=== PATIENT | male | born 1990 | race Caucasian/White ===

== ENCOUNTER 2023-10-17 04:56 | Emergency (ER) | payer SELFPAY ==
[2023-10-17] MEDS ORDERED: Naproxen 500 MG TAB ONE (05:24)
[2023-10-17] MEDS ORDERED: Carbamide Peroxide 6.5% Otic Drops 15 ml Bottle ONE (05:25)
[2023-10-17] MEDS ORDERED: Tetracaine 0.5% PF 4 ML BOT ONE (05:28)
[2023-10-17] MEDS ORDERED: AMOXicillin 250 MG CAP ONE (06:50)
== END 2023-10-17 07:00 | disposition home or self-care (01) ==
LOC: NAV ERS 04:56
DX: H61.21 Impacted cerumen, right ear (principal); F17.210 Nicotine dependence, cigarettes, uncomplicated; F17.290 Nicotine dependence, other tobacco product, uncomplicated
CPT/HCPCS: 69210; 99282